=== PATIENT | male | born 1955 | race Caucasian/White ===

== ENCOUNTER → 2025-08-03 17:44 | Outpatient (REF) | payer MEDICARE, BC, SELFPAY | LOC: RAD 17:44 | PROVIDERS: ATTENDING PHYSICIAN Nurse Practitioner Adult Health | DX: Z91.81 History of falling (principal); M54.50 Low back pain, unspecified | CPT/HCPCS: 72110 ==

== ENCOUNTER → 2025-09-21 13:07 | Outpatient (REF) | payer MEDICARE, BC, SELFPAY | LOC: HWRAD 13:07 | PROVIDERS: ATTENDING PHYSICIAN Nurse Practitioner Adult Health | DX: M54.6 Pain in thoracic spine (principal); Z91.81 History of falling; R07.89 Other chest pain | CPT/HCPCS: 71101; 72072 ==